=== PATIENT | male | born 1930 | race Caucasian/White ===

== ENCOUNTER 2017-07-22 20:22 | Emergency (ER) | payer MEDICARE ==
[~2017-07-22] VITALS: Ht 170.2 cm; Wt 90.0 kg
[~2017-07-22 20:22] MED LIST: ASPI81TA82 PO; COZA100T PO; DILT240C7 PO; FINA5TAB77 PO; FISH1000 PO; INDO25CA PO; METF-324 PO; MEVA40TA PO; NEUR600T PO; OMEP20TA39 PO; TAMS0.4C67 PO; VITA-13 PO
[2017-07-22 20:31] VITALS: BP 125/63; PULSE 76; RESP 18; TEMP 97.7; O2SAT 94
[2017-07-22] MEDS ORDERED: TETANUS/DIPHTHERIA TOXOID ADULT 0.5 ML VIAL IM ONE (21:00)
[2017-07-22] MEDS ORDERED: FURO20TA PO (21:05)
[2017-07-22] MEDS ORDERED: FISHCAP4 PO (21:05)
[2017-07-22] MEDS ORDERED: DILT300C PO (21:05)
[2017-07-22] MEDS ORDERED: APIX5TAB PO (21:05)
[2017-07-22] MEDS ORDERED: OMEP20TA93 PO (21:05)
[2017-07-22] MEDS ORDERED: EZET1TAB8 PO (21:05)
[2017-07-22] MEDS ORDERED: METO50TA PO (21:05)
[2017-07-22] MEDS ORDERED: METF1000 PO (21:05)
[2017-07-22] MEDS ORDERED: INDO25CA PO (21:05)
[2017-07-22] MEDS ORDERED: GABA600T PO (21:05)
[2017-07-22] MEDS ORDERED: GLIM1TAB PO (21:05)
[2017-07-22] MEDS ORDERED: PROC1CRE2 RECTAL (21:05)
[2017-07-22] MEDS ORDERED: MAGN250T11 PO (21:05)
[2017-07-22] MEDS ORDERED: FLUT50SP EACH NARE (21:05)
[2017-07-22] MEDS ORDERED: TRIA0.022 (21:05)
[2017-07-22] MEDS ORDERED: LOSA50TA PO (21:05)
[2017-07-22] MEDS ORDERED: DONE5TAB7 PO (21:05)
[2017-07-22] MEDS ORDERED: ACET-822 PO (21:05)
[2017-07-22] MEDS ORDERED: LIDOCAINE HCL 1% 20 ML VIAL ONE (21:07)
--- NOTE | 2017-07-22 21:08 | PD ---
HPI Chief Complaint: Head Injury Time Seen by Provider: 20:36 Travel History International Travel<30 days: No Contact w/Intl Traveler<30days: No Traveled to known affect area: No History of Present Illness HPI 87yo M with PMH of afib on eliquis, CVA, DM, neuropathy here with c/o scalp laceration after fall today. Pt took a step back and didnt realize that there was 2 steps of stairs at home and fell backwards. Thinks he hit a furniture and has a large scalp laceration posterior scalp. Pain is localized where hematoma and laceration is and throbbing. No exacerbating or alleviating factors. Denies any LOC, chest pain, visual changes, sob, n/v, abdominal pain, focal weakness or numbness. Pt has a skin tear in left elbow too but denies any pain and has full range of motion. Does not remember last tetanus. PFSH Past Medical History Hx Anticoagulant Therapy: Yes Arthritis: Yes Cancer: Yes (SKIN) Cardiovascular Problems: Yes (A-Fib) High Cholesterol: Yes Cerebrovascular Accident: Yes (Stroke) Coronary Artery Disease: Yes Diabetes: Yes Patient Takes Glucophage: Yes Diminished Hearing: No Endocrine: Yes Gastrointestinal Disorders: Yes (GERD) GERD: Yes Genitourinary: Yes (BPH) Hepatitis: No Hiatal Hernia: No Hypertension: Yes Immune Disorder: No Musculoskeletal: Yes (ARTHRITIS) Neurologic: Yes (NEUROPATHY LEGS/ FEET) Psychiatric: No Respiratory: No Thyroid Disease: No Tetanus Vaccination: > 5 Years ?: Not Past Surgical History Abdominal Surgery: Yes (ING. HERNIA REP., CHOLECYSTECTOMY) AICD: No Cardiac Surgery: No Cholecystectomy: Yes Ear Surgery: No Endocrine Surgery: No Eye Surgery: No Genitourinary Surgery: No Gynecologic Surgery: No Joint Replacement: No Oral Surgery: No Pacemaker: No Thoracic Surgery: No Other Surgery: Yes Social History Alcohol Use: Yes (6-7 BEERS PER DAY) Tobacco Use: No Substance Use: No Allergies-Medications (Allergen,Severity, Reaction): Coded Allergies: pistachio nut (Unverified Allergy, Severe, Edema, 11/19/16) clindamycin (Verified Allergy, Unknown, 07/22/17) lovastatin (Verified Allergy, Unknown, 07/22/17) Reported Meds & Prescriptions Reported Meds & Active Scripts Active Reported Tylenol Extra Strength (Acetaminophen) 500 Mg Tablet 500 Mg PO HS Triamcinolone Acetonide 0.025 % Oint...g. Proctocort Rectal 1% (Hydrocortisone Rectal 1%) 1% Cream 1 Applic RECTAL Q6H PRN Omeprazole 20 Mg Tab 20 Mg PO DAILY Metoprolol Tartrate 50 Mg Tab 50 Mg PO BID Metformin (Metformin HCl) 1,000 Mg Tab 1,000 Mg PO BIDPC Magnesium Oxide 250 Mg Tab 250 Mg PO BID Losartan (Losartan Potassium) 50 Mg Tab 50 Mg PO DAILY Indomethacin 25 Mg Cap 25 Mg PO TID Take with food, milk, or antacids to decrease stomach adverse effects. Glimepiride 1 Mg Tab 1 Mg PO DAILY Take with breakfast or first main meal Gabapentin 600 Mg Tab 600 Mg PO TID Furosemide 20 Mg Tab 20 Mg PO DAILY Fluticasone Nasal [place] 50 Mcg/Act Naspr 50 Mcg EACH NARE BID 50 mcg/spray Fish Oil + D3 (Fish Oil-Cholecalciferol) 1,200-1,000 Mg-Unit Cap 1 Cap PO DAILY Ezetimibe 10 Mg Tab 10 Mg PO DAILY Eliquis (Apixaban) 5 Mg Tab 5 Mg PO BID Donepezil 5 Mg Tab 5 Mg PO HS Diltiazem HCl ER (Diltiazem HCl Coated Beads) 300 Mg Cap 300 Mg PO DAILY Review of Systems Except as stated in HPI: all other systems reviewed are Neg Physical Exam Narrative GENERAL: 87yo M in mild distress. SKIN: Focused skin assessment warm/dry. HEAD: Large posterior hematoma with 8cm scalp laceration. EYES: Pupils equal and round. No scleral icterus. No injection or drainage. ENT: No hemotympanum or septal hematoma. NECK: No midline cervical spine ttp but some paraspinal ttp right. CARDIOVASCULAR: Regular rate and rhythm. No murmur appreciated. RESPIRATORY: No accessory muscle use. Clear to auscultation. Breath sounds equal bilaterally. GASTROINTESTINAL: Abdomen soft, non-tender, nondistended. MUSCULOSKELETAL: Left elbow: +Skin tear. No ttp. FROM left elbow. Sensation intact. Distal pulses intact. NEUROLOGICAL: Awake and alert. No obvious cranial nerve deficits. Motor grossly within normal limits in all extremities. Sensation intact. Normal speech. PSYCHIATRIC: Appropriate mood and affect; insight and judgment normal. Data Data Last Documented VS Vital Signs Date Time Temp Pulse Resp B/P (MAP) Pulse Ox O2 Delivery O2 Flow Rate FiO2 07/22/17 20:43 Room Air 07/22/17 20:31 97.7 76 18 125/63 (83) [address] Brain W/O Iv Contrast(Rout) (07/22/17 ) Ct Cerv Spine W/O Contrast (07/22/17 ) Tetanus/Diphtheria Tox Adult (Tetanus/Di (07/22/17 21:00) Lidocaine 1% Inj (50 Ml) (Xylocaine 1% I (07/22/17 21:15) Lidocaine 1% Inj (Xylocaine 1% Inj) (07/22/17 21:07) Ed Discharge Order (07/22/17 22:35) MDM Medical Decision Making Medical Screen Exam Complete: Yes Emergency Medical Condition: Yes Differential Diagnosis Scalp laceration vs. ICH vs. fracture Narrative Course 87yo M with large scalp laceration and hematoma s/p mechanical fall today about 7pm. Pt is on eliquis. CT cspine showed degenerative changes without fracture. CT brain showed cerebral atrophy. No acute intracranial abnormality. Scalp laceration. Pt said he has hydrocodone at home and does not need anything for pain. Pt updated on tetanus. Laceration repaired. Pt has been acting like himself. Return precautions given. Procedures Procedure Narrative LACERATION LOCATION: Scalp LENGTH: 8cm NUMBER OF STITCHES/HONEY: 16 honey. 2 sutures. REPAIR: The laceration was infiltrated with 8cc of 1% lidocaine. The wound was copiously irrigated and explored without evidence of foreign body, tendon injury or neurovascular injury. The wound was closed using 16 honey but there was still some oozing so decided to place 2 4-0 prolene sutures. This was a single layer repair. A sterile dressing was applied. The patient was advised to keep the dressing clean and dry. Patient tolerated the procedure well. Diagnosis Primary Impression: Fall Qualified Codes: W19.XXXA - Unspecified fall, initial encounter Patient Instructions: General Instructions Departure Forms: Tests/Procedures Additional Instructions: Please follow up with your primary care physician in 5-7 days for staple and suture removal. Total of 16 honey and 2 sutures. Return to the ED if symptoms worsen. Med/Other Pt SpecificInfo: No Change to Meds Disposition: 01 DISCHARGE HOME Condition: Stable Audrey Maldonado Jul 22, 2017 21:08
[2017-07-22] MEDS ORDERED: LIDOCAINE HCL 1% 50 ML VIAL INFIL ONE (21:15)
--- NOTE | 2017-07-22 21:48 | RADRPT ---
EXAM DATE/TIME: 07/22/2017 21:27 [facility] COMPARISON: No previous studies available for comparison. INDICATIONS : Trauma. Fall. Head laceration. RADIATION DOSE: 63.26 CTDIvol (mGy) MEDICAL HISTORY : Cerebrovascular disease. Cardiovascular disease Diabetes mellitus type 2. SURGICAL HISTORY : None. ENCOUNTER: Initial ACUITY: 1 day PAIN SCALE: 8/10 LOCATION: Bilateral cranial TECHNIQUE: Multiple contiguous axial images were obtained of the head. Using automated exposure control and adj ustment of the mA and/or kV according to patient size, radiation dose was kept as low as reasonably a chievable to obtain optimal diagnostic quality images. DICOM format image data is available electro nically for review and comparison. FINDINGS: CEREBRUM: The ventricles are normal for age. Cerebral atrophy. No evidence of midline shift, mass lesion, hemor rhage or acute infarction. No extra-axial fluid collections are seen. POSTERIOR FOSSA: The cerebellum and brainstem are intact. The 4th ventricle is midline. The cerebellopontine angle i s unremarkable. EXTRACRANIAL: The visualized portion of the orbits is intact. Left scalp laceration SKULL: The calvaria is intact. No evidence of skull fracture. CONCLUSION: Cerebral atrophy. No acute intracranial abnormality. Scalp laceration. Axel Gudino MD on July 22, 2017 at 21:45 Board Certified Radiologist. This report was verified electronically.
--- NOTE | 2017-07-22 21:54 | RADRPT ---
EXAM DATE/TIME: 07/22/2017 21:27 [facility] COMPARISON: No previous studies available for comparison. INDICATIONS : Trauma. Fall. Neck pain. RADIATION DOSE: 26.56 CTDIvol (mGy) MEDICAL HISTORY : Cerebrovascular disease. Cardiovascular disease Diabetes mellitus type 2. SURGICAL HISTORY : None. ENCOUNTER: Initial ACUITY: 1 day PAIN SCALE: 8/10 LOCATION: Bilateral neck TECHNIQUE: Volumetric scanning of the cervical spine was performed. Multiplanar reconstructions in the sagittal, coronal and oblique axial planes were performed. Using automated exposure control and adjustment o f the mA and/or kV according to patient size, radiation dose was kept as low as reasonably achievable to obtain optimal diagnostic quality images. DICOM format image data is available electronically f or review and comparison. FINDINGS: VERTEBRAE: Normal vertebral body height. Multilevel degenerative changes. Degenerative disease at multiple level s greatest at C6-7 with reactive endplate sclerosis. ALIGNMENT: Minimal anterolisthesis C5 on 6 and minimal retrolisthesis C6 on 7. C2-C3: The bony spinal canal is normal in size. No evidence of disc bulge or herniation. The neural forami na are bilaterally patent. C3-C4: Small central protrusion without canal stenosis. Mild neural frontal narrowing bilaterally.. C4-C5: The bony spinal canal is normal in size. No evidence of disc bulge or herniation. The neural forami na are bilaterally patent. C5-C6: Small central protrusion without canal stenosis. The neural foramina are bilaterally patent. C6-C7: The bony spinal canal is normal in size. No evidence of disc bulge or herniation. The neural forami na are bilaterally patent. C7-T1: The bony spinal canal is normal in size. No evidence of disc bulge or herniation. The neural forami na are bilaterally patent. CONCLUSION: Degenerative changes without fracture. Axel Gduino MD on July 22, 2017 at 21:50 Board Certified Radiologist. This report was verified electronically.
== END 2017-07-22 22:57 | disposition home or self-care (01) ==
LOC: PHED 20:22
DX: S01.01XA Laceration without foreign body of scalp, initial encounter (principal); M19.90 Unspecified osteoarthritis, unspecified site; I48.91 Unspecified atrial fibrillation; I25.10 Atherosclerotic heart disease of native coronary artery without angina pectoris; E11.40 Type 2 diabetes mellitus with diabetic neuropathy, unspecified; E78.00 Pure hypercholesterolemia, unspecified; I10 Essential (primary) hypertension; W10.9XXA Fall (on) (from) unspecified stairs and steps, initial encounter; Y92.009 Unspecified place in unspecified non-institutional (private) residence as the place of occurrence of the external cause; Z86.73 Personal history of transient ischemic attack (TIA), and cerebral infarction without residual deficits; Z23 Encounter for immunization; Z79.01 Long term (current) use of anticoagulants; Z79.84 Long term (current) use of oral hypoglycemic drugs
CPT/HCPCS: 12004; 70450; 72125; 90471; 90714